=== PATIENT | male | born 1955 | race Caucasian/White ===

== ENCOUNTER 2017-01-17 23:26 | Inpatient (IN) | payer OTHER ==
[~2017-01-17] VITALS: Ht 167.6 cm; Wt 81.8 kg
--- NOTE | 2017-01-17 23:36 | NUR ---
PT PRESENTS TO ED WITH C/O ABD PAIN THAT BEGAN THIS MORNING. PT REPORTS HE TOOK A "MINT TEA" AT HOME AND SHORTLY BEGAN TO FEEL CHEST TIGHTNESS AND SOB. PT APPEARS PALE AND SKIN COOL TO TOUCH. PT ACTIVELY VOMITING UPON ASSESSMENT. PT REPORTS PAIN 10/10 AT THIS TIME. RESPIRATIONS EVEN AND LABORED. BED IN LOW POSITION. CALL LIGHT WITHIN REACH. SPOUSE AT BEDSIDE.
[2017-01-18] VITALS (8 sets, daily range): BP systolic 129–209; BP diastolic 75–112
--- NOTE | 2017-01-18 00:01 | NUR ---
PT BACK FROM XRAY VIA WHEELCHAIR, NO ACUTE DISTRESS NOTED.
[2017-01-18 00:02] LABS: BASOPHIL % 0.8 % (0-2); PLATELET COUNT 235 x10^3mcL (130-400); RED CELL DISTRIBUTION WIDTH 14.1 % (11.5-14.5)
[2017-01-18 00:08] LABS: CALCIUM 8.3 mg/dL (8.5-10.1); CARBON DIOXIDE 19.9 mmol/L (21-32); CREATININE SERUM 3.6 mg/dL (0.7-1.3); POTASSIUM SERUM 4.4 mmol/L (3.5-5.1)
[2017-01-18 00:11] LABS: BILIRUBIN TOTAL 0.2 mg/dL (0.20-1.00); TOTAL PROTEIN, SERUM 7.7 g/dL (6.4-8.2)
[2017-01-18 00:12] LABS: ALBUMIN 2.7 g/dL (3.4-5.0)
[2017-01-18 00:31] LABS: CK-MB 2.3 ng/mL (0-3.6)
--- NOTE | 2017-01-18 00:32 | NUR ---
PT MOVED FROM ED B7 TO ED T1.
--- NOTE | 2017-01-18 01:00 | NUR ---
PT PLACED ON CPAP [address] RICHARD VERBAL ORDER, TOLERATING WELL, NO RESP DISTRESS OR SOB NOTED, SPO2 99%, AT BEDSIDE, WILL CONTINUE TO MONITOR.
--- NOTE | 2017-01-18 03:04 | NUR ---
PT UNABLE TO RECALL MEDS AT THIS TIME. WILL HAVE HAVE BRING THEM IN.
--- NOTE | 2017-01-18 03:27 | NUR ---
PT TO SOUTH ACCOMPANIED BY NURSE AND PT . PT IS ALERT/ORIENTED X4. NO C/O PAIN. PT STATES TOOK "MINT TEA AT 9:00PM YESTERDAY" AND "ABOUT 45 MIN LATER" BECAME SOB AND STARTED TO COUGH. TELE #29, SR. PT PLACED ON CPAP BY RT WITH FIO2 AT 60% AND CPAP AT 6. FINE CRACKLES NOTED BILAT. NO C/O SOB. BREATHING IS EVEN AND UNLABORED. SEE SKIN ASSESSMENT FOR SKIN INTEGRITY. BP; 209/112, DR NOGUERA MADE AWARE WILL CONTINUE TO MONITOR. SCD'S APPLIED TO BLE. PT ASSESSED; SEE NSG FLOWSHEET. SIDE RAILS UP X2. CALL LIGHT WITHIN REACH. BED IN LOWEST POSITION AND LOCKED PT ORIENTED TO ROOM.
--- NOTE | 2017-01-18 03:36 | NUR ---
PT TRANSFERRED TO [facility] AT THIS TIME. WITH RN, ERT AND RT AT BEDSIDE.
--- NOTE | 2017-01-18 03:45 | NUR ---
DR NOGUERA AND MYSELF IN PT ROOM. DR NOGUERA ASSESSING PT AND ASKING QUESTIONS FOR THE ADMIT.
--- NOTE | 2017-01-18 03:49 | NUR ---
PT TRANSFERRED TO [facility]-A WITH KIMBERLY MADISON
--- NOTE | 2017-01-18 04:00 | NUR ---
SCD'S APPLIED TO BLE
[2017-01-18 04:15] LABS: HDL CHOLESTEROL 56 mg/dL (40-60); MAGNESIUM 2.2 mg/dL (1.8-2.4); PHOSPHOROUS 4.8 mg/dL (2.5-4.9)
[2017-01-18 04:18] LABS: T3 TOTAL 0.99 ng/mL
[2017-01-18 04:26] LABS: FREE T4 0.83 ng/dL (0.76-1.46); FREE THYROXINE INDEX 2.1 ug/dL (1.4-4.5); T4(THYROXINE) 6.4 ug/dL (4.7-13.3)
[2017-01-18 04:29] LABS: CHOLESTEROL 231 mg/dL (<200); CHOLESTEROL/HDL RATIO 4.1; TRIGLYCERIDES 429 mg/dL (<150)
[2017-01-18] MEDS ORDERED: TENORMIN50 MG PO (05:07)
[2017-01-18] MEDS ORDERED: ISOSORBIDE MONO30 MG (05:08)
[2017-01-18] MEDS ORDERED: RANITIDINE HYD150 M2 (05:09)
[2017-01-18] MEDS ORDERED: LIPI20 (05:09)
[2017-01-18] MEDS ORDERED: FUROSEMIDE20 MG (05:09)
[2017-01-18] MEDS ORDERED: NIFEDIPINE30 MG (05:10)
--- NOTE | 2017-01-18 05:27 | NUR ---
PT APPEARS TO BE RESTING COMFORTABLY.NO C/O CP. WILL CONTINUE TO MONITOR.
--- NOTE | 2017-01-18 05:35 | NUR ---
PT TAKEN OFF CPAP BY RT. RT PLACED PT ON 4 LITERS O2 VIA NC, PT SATTING AT100%. WILL CONTINUE TO MONITOR.
[2017-01-18 07:03] LABS: microscopic required? YES; urine erythrocyte 2+ (NEGATIVE)
[2017-01-18 07:19] LABS: AMPHETAMINE QUAL UR NONE DETECTED (NEG <=1000)
--- NOTE | 2017-01-18 08:12 | NUR ---
EATING BREAKFAST THIS TIME. TOOK MEDS WITHOUT DIFFICULTY.
--- NOTE | 2017-01-18 09:21 | NUR ---
A/O X4. CLEAR SPEECH. FOLLOW COMMANDS. ON TEL 24 SR HR 70. RADIAL AND PEDAL PULSES PALPABLE. BLE +3 EDEMA. <3 SECS CAP REFILL. ON 3L NC SAT 99%. BREATHING EVEN AND UNLABORED.NO NVD. OCCASIONAL DRY COUGH. VOIDING ADEQUATELY. HAS MILD GENERALIZED WEAKNESS. NEEDS ASSIST. NO SKIN TEAR OR OPEN WOUNDS. DENIES PAIN AT THIS TIME. IV SITE INTACT ON RAC. WILL CONTINUE TO MONITOR. CALL LIGHT WITHIN REACH.
--- NOTE | 2017-01-18 10:32 | NUR ---
HEPARIN DRIP INITIATED AT 980 UNITS/HR. WILL CONTINUE TO MONITOR.
--- NOTE | 2017-01-18 15:08 | NUR ---
SPOKE WITH DR DYE REGARDING Pt COMPLAINING OF SORE THROAT.
--- NOTE | 2017-01-18 15:27 | NUR ---
CEPACOL GIVEN FOR SORE THROAT. WILL CONTINUE TO MONITOR.
--- NOTE | 2017-01-18 18:33 | NUR ---
GAVE REPORT TO VINNY FROM [facility].
--- NOTE | 2017-01-18 20:07 | NUR ---
PT RECIEVED AAO REG RESP NO SOB,V/S STABLE,KEPT CLEAN AND DRY TO TOUCH,PT GETTING READY TO BE TRANSFER TO [facility] ORDER,PT ON HEPARIN DRIP AT 1180 UNIT PER PROTOCOL AND NO CHANGE IN CONDITION AT THIS TIME,NO AVERSE REACTION NOTICE AT THIS TIME,SAIDA LOWER EXTR SWOLLEN AND PTIING EDEMA AND PALPABLE PULSES,CALL LIGHT EASY REACHED AND WILL CONTINUE TO MONITOR,
--- NOTE | 2017-01-18 21:19 | NUR ---
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
--- NOTE | 2017-01-19 08:21 | NUR ---
TRANS TO DOWELL ECHO NOT DONE.
== END 2017-01-18 21:15 | disposition short-term general hospital (02) | DRG 280 ==
LOC: ED 23:26 → DU 01-18 02:14
PROVIDERS: Emergency Medicine; ADMIT Family Medicine
DX: I21.09 ST elevation (STEMI) myocardial infarction involving other coronary artery of anterior wall (principal); J96.01 Acute respiratory failure with hypoxia; N17.0 Acute kidney failure with tubular necrosis; E43 Unspecified severe protein-calorie malnutrition; I50.43 Acute on chronic combined systolic (congestive) and diastolic (congestive) heart failure; I13.0 Hypertensive heart and chronic kidney disease with heart failure and stage 1 through stage 4 chronic kidney disease, or unspecified chronic kidney disease; D68.69 Other thrombophilia; N18.4 Chronic kidney disease, stage 4 (severe); I16.1 Hypertensive emergency; E11.65 Type 2 diabetes mellitus with hyperglycemia; E11.59 Type 2 diabetes mellitus with other circulatory complications; I25.10 Atherosclerotic heart disease of native coronary artery without angina pectoris; E78.5 Hyperlipidemia, unspecified; E03.9 Hypothyroidism, unspecified; F10.10 Alcohol abuse, uncomplicated
CPT/HCPCS: 36600; 82962; 83880; 84439; G0480; J1644; J1940; J2405; J7620; Q0092

== ENCOUNTER 2017-03-01 17:05 | Emergency (ER) | payer OTHER ==
[~2017-03-01] VITALS: Ht 167.6 cm; Wt 79.0 kg
[~2017-03-01 17:05] MED LIST: FUROSEMIDE20 MG; ISOSORBIDE MONO30 MG; LIPI20; NIFEDIPINE30 MG; RANITIDINE HYD150 M2; TENORMIN50 MG PO
[2017-03-01 17:50] LABS: BASOPHIL % 0.3 % (0-2); PLATELET COUNT 266 x10^3mcL (130-400); RED CELL DISTRIBUTION WIDTH 13.5 % (11.5-14.5)
[2017-03-01 17:59] LABS: CALCIUM 8.1 mg/dL (8.5-10.1); CARBON DIOXIDE 19.9 mmol/L (21-32); CREATININE SERUM 3.7 mg/dL (0.7-1.3); POTASSIUM SERUM 3.9 mmol/L (3.5-5.1)
[2017-03-01 18:04] LABS: ALBUMIN 2.4 g/dL (3.4-5.0); BILIRUBIN TOTAL 0.3 mg/dL (0.20-1.00)
[2017-03-01 18:17] LABS: CK-MB 3.5 ng/mL (0-3.6)
[2017-03-01 21:25] VITALS: BP 161/107
== END 2017-03-01 21:25 | disposition short-term general hospital (02) ==
LOC: ED 17:05
PROVIDERS: Emergency Medicine
DX: J81.0 Acute pulmonary edema (principal); Z91.14 Patient's other noncompliance with medication regimen; I16.0 Hypertensive urgency
CPT/HCPCS: 36600; 82962; 83880; J1815; J1940; J2405; Q0162

== ENCOUNTER 2017-03-11 10:36 | Emergency (ER) | payer OTHER ==
[~2017-03-11] VITALS: Ht 167.6 cm; Wt 73.0 kg
[2017-03-11] MEDS ORDERED: FOLIC ACID (10:54)
[2017-03-11] MEDS ORDERED: ASPIR 8181 MG PO (10:54)
[2017-03-11] MEDS ORDERED: HYDRALAZINE (10:55)
[2017-03-11 11:07] LABS: BASOPHIL % 0.5 % (0-2); PLATELET COUNT 233 x10^3mcL (130-400); RED CELL DISTRIBUTION WIDTH 13.9 % (11.5-14.5)
[2017-03-11 11:28] LABS: CALCIUM 8.6 mg/dL (8.5-10.1); CARBON DIOXIDE 24.6 mmol/L (21-32); CREATININE SERUM 3.8 mg/dL (0.7-1.3); POTASSIUM SERUM 4.9 mmol/L (3.5-5.1)
[2017-03-11 11:33] LABS: BILIRUBIN TOTAL 0.3 mg/dL (0.20-1.00); TOTAL PROTEIN, SERUM 7.3 g/dL (6.4-8.2)
[2017-03-11 11:36] LABS: ALBUMIN 2.5 g/dL (3.4-5.0)
[2017-03-11 15:20] VITALS: BP 149/77
== END 2017-03-11 15:20 | disposition home or self-care (01) ==
LOC: ED 10:36
PROVIDERS: Emergency Medicine
DX: I11.0 Hypertensive heart disease with heart failure (principal); I50.9 Heart failure, unspecified; Z88.5 Allergy status to narcotic agent; Z88.8 Allergy status to other drugs, medicaments and biological substances
CPT/HCPCS: 83880; J0360; J1940; Q0092

== ENCOUNTER 2017-06-30 12:26 | Emergency (ER) | payer OTHER ==
[~2017-06-30] VITALS: Ht 167.6 cm; Wt 76.0 kg
[~2017-06-30 12:26] MED LIST changes: +ASPIR 8181 MG PO; +FOLIC ACID; +HYDRALAZINE
[2017-06-30 12:32] VITALS: Ht 167.6 cm; Wt 76.0 kg
[2017-06-30 15:53] VITALS: BP 170/91
== END 2017-06-30 15:53 | disposition home or self-care (01) ==
LOC: ED 12:26
DX: S16.1XXA Strain of muscle, fascia and tendon at neck level, initial encounter (principal); S20.219A Contusion of unspecified front wall of thorax, initial encounter; I10 Essential (primary) hypertension; Z88.6 Allergy status to analgesic agent; Z88.8 Allergy status to other drugs, medicaments and biological substances; Z91.011 Allergy to milk products; V49.9XXA Car occupant (driver) (passenger) injured in unspecified traffic accident, initial encounter; W22.11XA Striking against or struck by driver side automobile airbag, initial encounter; Y93.I9 Activity, other involving external motion; Y92.410 Unspecified street and highway as the place of occurrence of the external cause; Y99.8 Other external cause status